=== PATIENT | female | born 1970 | race Two or more races ===

== ENCOUNTER 2021-11-16 01:13 | Emergency (ER) | payer BC, MEDICAID ==
[2021-11-16 02:20] LABS: ESTIMATED GFR 89 mL/min (>60)
== END 2021-11-16 02:30 | disposition home or self-care (01) ==
LOC: FB.ED 01:13
DX: F43.0 Acute stress reaction (principal); I10 Essential (primary) hypertension; I25.2 Old myocardial infarction; F17.210 Nicotine dependence, cigarettes, uncomplicated; Z79.899 Other long term (current) drug therapy
CPT/HCPCS: 36415; 80048; 85025; 93005; 99284

== ENCOUNTER 2021-11-17 03:28 | Emergency (ER) | payer MEDICAID ==
[2021-11-17] MEDS ORDERED: Sodium Chloride 0.9% 10 ML Syringe FLUSH PRN (03:38)
[2021-11-17] MEDS ORDERED: Thiamine 200 MG/2 ML MDV IVPUSH STA (03:39)
[2021-11-17] MEDS ORDERED: Sodium Chloride 0.9% 1,000 ML IV SCH (03:45)
[2021-11-17 04:15] LABS: ESTIMATED GFR 77 mL/min (>60)
== END 2021-11-17 05:31 | disposition home or self-care (01) ==
LOC: FB.ED 03:28
DX: F10.129 Alcohol abuse with intoxication, unspecified (principal); I10 Essential (primary) hypertension; I25.2 Old myocardial infarction; Z79.899 Other long term (current) drug therapy
CPT/HCPCS: 36415; 80053; 80307; 82150; 83690; 85025; 96361; 96374; 99284; J3411; J3490; J7030

== ENCOUNTER 2021-11-25 00:25 | Emergency (ER) | payer MEDICAID ==
[2021-11-25 00:54] LABS: ESTIMATED GFR 108 mL/min (>60)
[2021-11-25] MEDS ORDERED: amLODIPine 10 MG Tab PO STA (01:20)
[2021-11-25] MEDS ORDERED: Amoxicillin/Clavulanate K 875-125 MG Tab PO STA (01:54)
[2021-11-25] MEDS ORDERED: hydrALAZINE 20 MG/ML SDV IM ONE (01:59)
== END 2021-11-25 02:50 | disposition home or self-care (01) ==
LOC: FB.ED 00:25
DX: R10.32 Left lower quadrant pain (principal); F10.20 Alcohol dependence, uncomplicated; I10 Essential (primary) hypertension; I25.2 Old myocardial infarction; Z72.0 Tobacco use; Z79.899 Other long term (current) drug therapy
CPT/HCPCS: 36415; 74176; 80048; 85025; 96372; 99284; A9270; J0360

== ENCOUNTER 2021-12-29 19:07 | Emergency (ER) | payer MEDICAID ==
[2021-12-29] MEDS: Acetaminophen 500 MG Tab PO ONE ×2 (20:30→22:32)
[2021-12-29 22:33] LABS: ESTIMATED GFR 104 mL/min (>60)
[2021-12-29 22:34] LABS: ACETAMINOPHEN < 2 ug/mL (<2)
== END 2021-12-29 21:30 | disposition home or self-care (01) ==
LOC: FB.ED 19:07
DX: R51.9 Headache, unspecified (principal); M54.2 Cervicalgia; I10 Essential (primary) hypertension; I25.2 Old myocardial infarction; Z79.899 Other long term (current) drug therapy; W10.8XXA Fall (on) (from) other stairs and steps, initial encounter
CPT/HCPCS: 36415; 70450; 72125; 80053; 80143; 80179; 80307; 84484; 85025; 99285; A9270-GY

== ENCOUNTER 2022-02-21 01:09 | Emergency (ER) | payer MEDICAID ==
[2022-02-21] MEDS ORDERED: Ondansetron 4 MG Tab.DIS ONE (01:28)
[2022-02-21] MEDS ORDERED: Ondansetron 4 MG Tab.DIS PO ONE (01:30)
[2022-02-21] MEDS ORDERED: Acetaminophen 500 MG Tab PO ONE (01:40)
[2022-02-21] MEDS ORDERED: Benzonatate 100 MG Cap PO ONE (01:40)
[2022-02-21] MEDS ORDERED: Losartan 50 MG Tab PO ONE (01:41)
== END 2022-02-21 03:00 | disposition home or self-care (01) ==
LOC: FB.ED 01:09
DX: I10 Essential (primary) hypertension (principal); I25.2 Old myocardial infarction; Z79.899 Other long term (current) drug therapy
CPT/HCPCS: 99284; A9270; Q0162

== ENCOUNTER 2022-04-23 11:28 | Emergency (ER) | payer MEDICAID ==
[2022-04-23 11:42] LABS: ESTIMATED GFR 103 mL/min (>60)
[2022-04-23] MEDS ORDERED: hydrALAZINE 20 MG/ML SDV IVPUSH ONE (11:42)
[2022-04-23] MEDS ORDERED: Sodium Chloride 0.9% 1,000 ML IV SCH ×2 (11:45→14:45)
[2022-04-23] MEDS ORDERED: Ondansetron 4 MG/2 ML SDV IVPUSH ONE (12:12)
[2022-04-23] MEDS ORDERED: LORazepam 2 MG/ML SDV IVPUSH ONE (12:14)
[2022-04-23] MEDS ORDERED: Sodium Chloride 0.9% 1,000 ML IV ONE (12:47)
[2022-04-23 18:37] LABS: ESTIMATED GFR 103 mL/min (>60)
== END 2022-04-23 19:53 | disposition home or self-care (01) ==
LOC: FB.ED 11:28
DX: F10.129 Alcohol abuse with intoxication, unspecified (principal); Y90.0 Blood alcohol level of less than 20 mg/100 ml
CPT/HCPCS: 36415; 80053; 80307; 84484; 85025; 93005; 96361; 96374; 96375; 99284; J0360; J2060; J2405; J7030

== ENCOUNTER 2022-10-15 12:54 | Emergency (ER) | payer MEDICAID ==
[2022-10-15] MEDS ORDERED: Sodium Chloride 0.9% 10 ML Syringe FLUSH PRN (13:01)
[2022-10-15] MEDS ORDERED: Ondansetron 4 MG/2 ML SDV IVPUSH ONE (13:02)
[2022-10-15] MEDS ORDERED: LORazepam 2 MG/ML SDV IVPUSH STA (13:06)
[2022-10-15] MEDS ORDERED: Dextrose 5%-0.9% NaCl 1,000 ML IV SCH (13:15)
[2022-10-15] MEDS ORDERED: amLODIPine 10 MG Tab PO ONE (13:32)
[2022-10-15 13:43] LABS: BASOPHILS PERCENT AUTO 0.7 % (0.2-1.5); EOSINOPHILS PERCENT AUTO 0.6 % (0.6-8.1); HEMATOCRIT 40.5 % (34.2-48.2); HEMOGLOBIN 13.6 g/dL (11.4-15.5); LYMPHOCYTES ABSOLUTE AUTO 2.2 x10-3/uL (1.0-4.4); LYMPHOCYTES PERCENT AUTO 58.7 % (18.4-52.1); MEAN CORPUSCULAR HEMOGLOBIN 33.1 pg (23.9-33.9); MEAN CORPUSCULAR HGB CONC 33.7 g/dL (31.9-34.8); MEAN CORPUSCULAR VOLUME 98.3 fL (76.7-100.5); MEAN PLATELET VOLUME 7.2 fL (7.1-12.4); MONOCYTES ABSOLUTE AUTO 0.2 x10-3/uL (0.3-1.0); MONOCYTES PERCENT AUTO 4.9 % (4.4-15.7); NEUTROPHILS ABSOLUTE AUTO 1.3 x10-3/uL (1.5-6.3); NEUTROPHILS PERCENT AUTO 35.1 % (30.8-76.2); PLATELET COUNT,PLT 219 x10(3)uL (151-488); RED BLOOD CELL COUNT 4.12 x10(6)uL (3.60-5.20); WHITE BLOOD CELL COUNT,WBC 3.7 x10-3/uL (3.0-10.3)
[2022-10-15 13:50] LABS: BLOOD UREA NITROGEN,BUN 10 mg/dL (7-18); BUN/CREATININE RATIO 11.1 (9-20); CALCIUM 8.6 mg/dL (8.6-10.2); CARBON DIOXIDE,CO2 25 mmol/L (21-32); CHLORIDE,CL 104 mmol/L (100-110); CREATININE 0.9 mg/dL (0.55-1.02); ESTIMATED GFR 76 mL/min (>60); GLUCOSE RANDOM 138 mg/dL (80-116); POTASSIUM,K 3.3 mmol/L (3.5-5.3); SODIUM,NA 141 mmol/L (135-145)
[2022-10-15 13:56] LABS: A/G RATIO 0.9; ALANINE AMINOTRANSFERASE,ALT 24 U/L (12-36); ALBUMIN 3.7 g/dL (3.5-5.2); ALKALINE PHOSPHATASE 92 IU/L (56-112); AMYLASE 54 U/L (25-115); ASPARTATE AMNIOTRANSFERASE,AST 37 IU/L (5-25); BILIRUBIN TOTAL 0.4 mg/dL (0.1-1.3); PROTEIN TOTAL,TP 7.9 g/dL (6.0-8.0); SALICYLATE 3.6 mg/dL (<2.8)
[2022-10-15 13:58] LABS: ACETAMINOPHEN < 2 ug/mL (<2)
[2022-10-15 14:04] LABS: TSH ULTRASENSITIVE 0.58 IU/mL (0.36-3.74)
[2022-10-15 14:09] LABS: BILIRUBIN,URINE NEGATIVE (NEGATIVE); GLUCOSE,URINE NORMAL (NORMAL); KETONES,URINE NEGATIVE (NEGATIVE); LEUKOCYTE ESTERASE,URINE NEGATIVE (NEGATIVE); NITRITE,URINE NEGATIVE (NEGATIVE); OCCULT BLOOD,URINE NEGATIVE (NEGATIVE); PROTEIN,URINE NEGATIVE (NEGATIVE); UROBILINOGEN,URINE NORMAL (NEGATIVE)
[2022-10-15 14:10] LABS: APPEARANCE,URINE CLEAR (CLEAR); BACTERIA,URINE RARE (NS); COLOR,URINE YELLOW (YELLOW); RBC,URINE 0-5 (0-5); SQUAMOUS EPITHELIAL CELLS,UR FEW (NS,R,O); WBC,URINE 0-5 (0-5)
[2022-10-15 14:14] LABS: AMPHETAMINES SCREEN, URINE NEGATIVE (NEGATIVE); BARBITURATE SCREEN,URINE NEGATIVE (NEGATIVE); BENZODIAZEPINES SCREEN,URINE NEGATIVE (NEGATIVE); BUPRENORPHINE SCREEN,URINE NEGATIVE (NEGATIVE); METHADONE SCREEN, URINE NEGATIVE (NEGATIVE); METHAMPHETAMINE SCREEN, URINE NEGATIVE (NEGATIVE); OXYCODONE SCREEN,URINE NEGATIVE (NEGATIVE); PROPOXYPHENE SCREEN,URINE NEGATIVE (NEGATIVE); THC SCREEN,URINE NEGATIVE (NEGATIVE)
[2022-10-15] MEDS: Labetalol 20 MG/4 ML Syringe IVPUSH ONE ×2 (14:52→14:59)
[2022-10-15] MEDS ORDERED: Labetalol 20 MG/4 ML Syringe IVPUSH ONE (14:56)
[2022-10-15] MEDS ORDERED: Sodium Chloride 0.9% 1,000 ML IV SCH ×2 (15:00→17:45)
[2022-10-15] MEDS ORDERED: Potassium Chloride 20 MEQ Tab.ER PO ONE (15:09)
[2022-10-15] MEDS ORDERED: LORazepam 2 MG/ML SDV IVPUSH ONE (17:10)
[2022-10-15] MEDS ORDERED: hydrALAZINE 20 MG/ML SDV IVPUSH ONE (18:51)
[2022-10-15] MEDS ORDERED: Nicotine 21 MG/24 Hr Patch TRDERM ONE (19:30)
== END 2022-10-15 19:45 ==
LOC: FB.ED 12:54
DX: F32.A Depression, unspecified (principal); F41.9 Anxiety disorder, unspecified; I10 Essential (primary) hypertension; I25.2 Old myocardial infarction; J45.909 Unspecified asthma, uncomplicated; Z79.899 Other long term (current) drug therapy
CPT/HCPCS: 36415; 80053; 80143; 80179; 80307; 81001; 81025; 82150; 83690; 84439; 84443; 85025; 96361; 96374; 96375; 96376; 99285; A9270; J0360; J2060; J2405; J3490; J7030

== ENCOUNTER 2023-03-06 10:46 | Emergency (ER) | payer MEDICAID ==
[2023-03-06] MEDS ORDERED: Sodium Chloride 0.9% 10 ML Syringe FLUSH PRN (10:54)
[2023-03-06 11:07] LABS: BASOPHILS ABSOLUTE AUTO 0.1 x10-3/uL (0.0-0.1); BASOPHILS PERCENT AUTO 0.8 % (0.2-1.5); EOSINOPHILS PERCENT AUTO 0.4 % (0.6-8.1); LYMPHOCYTES ABSOLUTE AUTO 2.4 x10-3/uL (1.0-4.4); LYMPHOCYTES PERCENT AUTO 37.1 % (18.4-52.1); MEAN CORPUSCULAR HEMOGLOBIN 33.4 pg (23.9-33.9); MEAN CORPUSCULAR HGB CONC 33.4 g/dL (31.9-34.8); MEAN CORPUSCULAR VOLUME 99.8 fL (76.7-100.5); MEAN PLATELET VOLUME 7.7 fL (7.1-12.4); MONOCYTES ABSOLUTE AUTO 0.2 x10-3/uL (0.3-1.0); MONOCYTES PERCENT AUTO 2.5 % (4.4-15.7); NEUTROPHILS ABSOLUTE AUTO 3.8 x10-3/uL (1.5-6.3); NEUTROPHILS PERCENT AUTO 59.2 % (30.8-76.2); PLATELET COUNT,PLT 311 x10(3)uL (151-488); RED BLOOD CELL COUNT 4.21 x10(6)uL (3.60-5.20); RED CELL DISTRIBUTION WIDTH 13.9 % (12.3-16.5); WHITE BLOOD CELL COUNT,WBC 6.3 x10-3/uL (3.0-10.3)
[2023-03-06 11:22] LABS: BLOOD UREA NITROGEN,BUN 10 mg/dL (7-18); BUN/CREATININE RATIO 14.3 (9-20); CALCIUM 9.5 mg/dL (8.6-10.2); CARBON DIOXIDE,CO2 26 mmol/L (21-32); CHLORIDE,CL 106 mmol/L (100-110); CREATININE 0.7 mg/dL (0.55-1.02); EST CRCL DRUG DOSING (CG) 76.88 mL/min; ESTIMATED GFR 103 mL/min (>60); GLUCOSE RANDOM 89 mg/dL (80-116); POTASSIUM,K 3.3 mmol/L (3.5-5.3); SODIUM,NA 145 mmol/L (135-145)
[2023-03-06 11:27] LABS: A/G RATIO 0.8; ALANINE AMINOTRANSFERASE,ALT 20 U/L (12-36); ALBUMIN 4.1 g/dL (3.5-5.2); ALKALINE PHOSPHATASE 93 IU/L (56-112); ASPARTATE AMNIOTRANSFERASE,AST 15 IU/L (5-25); BILIRUBIN TOTAL 0.4 mg/dL (0.1-1.3); MAGNESIUM 2.2 mg/dL (1.8-2.5); PROTEIN TOTAL,TP 9.1 g/dL (6.0-8.0)
[2023-03-06 12:05] LABS: INFLUENZA A NAA NEGATIVE (NEGATIVE); INFLUENZA B NAA NEGATIVE (NEGATIVE)
[2023-03-06] MEDS ORDERED: LORazepam 2 MG/ML SDV IM STA (12:10)
[2023-03-06 12:12] LABS: CORONAVIRUS COVID-19 NAA NEGATIVE (NEGATIVE)
== END 2023-03-06 12:22 | disposition home or self-care (01) ==
LOC: FB.ED 10:46
DX: F10.20 Alcohol dependence, uncomplicated (principal); F43.9 Reaction to severe stress, unspecified; I25.2 Old myocardial infarction; J45.909 Unspecified asthma, uncomplicated; I10 Essential (primary) hypertension; Z88.0 Allergy status to penicillin; Z20.822 Contact with and (suspected) exposure to COVID-19; Y90.0 Blood alcohol level of less than 20 mg/100 ml
CPT/HCPCS: 0240U; 36415; 70450; 71045; 80053; 80307; 83735; 84100; 85025; 93005; 99285

== ENCOUNTER 2023-06-12 13:39 | Emergency (ER) | payer MEDICAID ==
[2023-06-12 14:21] LABS: BASOPHILS PERCENT AUTO 0.4 % (0.2-1.5); EOSINOPHILS ABSOLUTE AUTO 0.1 x10-3/uL (0.0-0.8); EOSINOPHILS PERCENT AUTO 1.3 % (0.6-8.1); HEMATOCRIT 36.9 % (34.2-48.2); HEMOGLOBIN 12.4 g/dL (11.4-15.5); LYMPHOCYTES ABSOLUTE AUTO 2.4 x10-3/uL (1.0-4.4); MEAN CORPUSCULAR HEMOGLOBIN 33.2 pg (23.9-33.9); MEAN CORPUSCULAR HGB CONC 33.7 g/dL (31.9-34.8); MEAN CORPUSCULAR VOLUME 98.5 fL (76.7-100.5); MEAN PLATELET VOLUME 7.9 fL (7.1-12.4); MONOCYTES ABSOLUTE AUTO 0.4 x10-3/uL (0.3-1.0); MONOCYTES PERCENT AUTO 9.4 % (4.4-15.7); NEUTROPHILS ABSOLUTE AUTO 1.5 x10-3/uL (1.5-6.3); NEUTROPHILS PERCENT AUTO 34.9 % (30.8-76.2); PLATELET COUNT,PLT 198 x10(3)uL (151-488); RED BLOOD CELL COUNT 3.74 x10(6)uL (3.60-5.20); RED CELL DISTRIBUTION WIDTH 14.9 % (12.3-16.5); WHITE BLOOD CELL COUNT,WBC 4.4 x10-3/uL (3.0-10.3)
[2023-06-12 14:32] LABS: BLOOD UREA NITROGEN,BUN 8 mg/dL (7-18); C-REACTIVE PROTEIN 0.8 mg/dL (<0.50); CALCIUM 8.8 mg/dL (8.6-10.2); CARBON DIOXIDE,CO2 31 mmol/L (21-32); CHLORIDE,CL 102 mmol/L (100-110); CREATININE 0.8 mg/dL (0.55-1.02); ESTIMATED GFR 88 mL/min (>60); GLUCOSE RANDOM 78 mg/dL (80-116); POTASSIUM,K 3.1 mmol/L (3.5-5.3); SODIUM,NA 140 mmol/L (135-145)
[2023-06-12 14:38] LABS: A/G RATIO 0.8; ALANINE AMINOTRANSFERASE,ALT 24 U/L (12-36); ALBUMIN 3.6 g/dL (3.5-5.2); ALKALINE PHOSPHATASE 86 IU/L (56-112); ASPARTATE AMNIOTRANSFERASE,AST 19 IU/L (5-25); BILIRUBIN TOTAL 0.3 mg/dL (0.1-1.3); MAGNESIUM 2.1 mg/dL (1.8-2.5); PROTEIN TOTAL,TP 7.9 g/dL (6.0-8.0)
[2023-06-12] MEDS ORDERED: Potassium Chloride 20 MEQ Tab.ER PO ONE (15:03)
[2023-06-12] MEDS ORDERED: Ketorolac 30 MG/ML SDV IVPUSH ONE (15:09)
[2023-06-12] MEDS ORDERED: Labetalol 20 MG/4 ML Syringe IVPUSH ONE (15:10)
[2023-06-12 16:44] LABS: INFLUENZA A NAA NEGATIVE (NEGATIVE); INFLUENZA B NAA NEGATIVE (NEGATIVE); RESPIRATORY SYNCYTIAL VIR NAA NEGATIVE (NEGATIVE)
[2023-06-12 16:56] LABS: CORONAVIRUS COVID-19 NAA NEGATIVE (NEGATIVE)
[2023-06-12] MEDS ORDERED: Iopamidol 755 Mg/ML 100 ML Bottle IV SCH (17:00)
[2023-06-12] MEDS ORDERED: amLODIPine 5 MG Tab PO ONE (18:51)
[2023-06-12] MEDS ORDERED: Azithromycin 500 MG Tab PO ONE (18:51)
== END 2023-06-12 19:25 | disposition home or self-care (01) ==
LOC: FB.ED 13:39
DX: J18.9 Pneumonia, unspecified organism (principal); R03.0 Elevated blood-pressure reading, without diagnosis of hypertension; E87.6 Hypokalemia; I10 Essential (primary) hypertension; I25.2 Old myocardial infarction; J45.909 Unspecified asthma, uncomplicated; Z88.0 Allergy status to penicillin; Z79.899 Other long term (current) drug therapy
CPT/HCPCS: 0241U; 36415; 71275; 80053; 83690; 83735; 84484; 85025; 85379; 86140; 93005; 93010; 96374; 96375; 99284; 99285-25; A9270-GY; J1885; J1920; Q9967

== ENCOUNTER 2023-07-02 06:42 | Emergency (ER) | payer MEDICAID ==
[2023-07-02] MEDS ORDERED: Sodium Chloride 0.9% 10 ML Syringe FLUSH PRN (07:04)
[2023-07-02 07:32] LABS: BASOPHILS ABSOLUTE AUTO 0.1 x10-3/uL (0.0-0.1); BASOPHILS PERCENT AUTO 1.3 % (0.2-1.5); EOSINOPHILS PERCENT AUTO 0.5 % (0.6-8.1); HEMATOCRIT 40.8 % (34.2-48.2); HEMOGLOBIN 13.8 g/dL (11.4-15.5); LYMPHOCYTES ABSOLUTE AUTO 1.9 x10-3/uL (1.0-4.4); LYMPHOCYTES PERCENT AUTO 36.1 % (18.4-52.1); MEAN CORPUSCULAR HEMOGLOBIN 33.2 pg (23.9-33.9); MEAN CORPUSCULAR VOLUME 97.7 fL (76.7-100.5); MEAN PLATELET VOLUME 7.2 fL (7.1-12.4); MONOCYTES ABSOLUTE AUTO 0.2 x10-3/uL (0.3-1.0); MONOCYTES PERCENT AUTO 4.4 % (4.4-15.7); NEUTROPHILS ABSOLUTE AUTO 3.1 x10-3/uL (1.5-6.3); NEUTROPHILS PERCENT AUTO 57.7 % (30.8-76.2); PLATELET COUNT,PLT 286 x10(3)uL (151-488); RED BLOOD CELL COUNT 4.17 x10(6)uL (3.60-5.20); RED CELL DISTRIBUTION WIDTH 15.5 % (12.3-16.5); WHITE BLOOD CELL COUNT,WBC 5.3 x10-3/uL (3.0-10.3)
[2023-07-02] MEDS: Sodium Chloride 0.9% 1,000 ML IV SCH (07:41)
[2023-07-02 07:42] LABS: BLOOD UREA NITROGEN,BUN 15 mg/dL (7-18); BUN/CREATININE RATIO 16.7 (9-20); CALCIUM 9.3 mg/dL (8.6-10.2); CARBON DIOXIDE,CO2 25 mmol/L (21-32); CHLORIDE,CL 100 mmol/L (100-110); CREATININE 0.9 mg/dL (0.55-1.02); ESTIMATED GFR 76 mL/min (>60); GLUCOSE RANDOM 78 mg/dL (80-116); POTASSIUM,K 4.4 mmol/L (3.5-5.3); SODIUM,NA 140 mmol/L (135-145)
[2023-07-02] MEDS: Thiamine 100 MG in Sodium Chloride 0.9% 50 ML IV ONE (07:43)
[2023-07-02 07:48] LABS: A/G RATIO 0.9; ALANINE AMINOTRANSFERASE,ALT 32 U/L (12-36); ALBUMIN 4.3 g/dL (3.5-5.2); ALKALINE PHOSPHATASE 91 IU/L (56-112); AMYLASE 50 U/L (25-115); ASPARTATE AMNIOTRANSFERASE,AST 36 IU/L (5-25); BILIRUBIN TOTAL 0.4 mg/dL (0.1-1.3)
[2023-07-02] MEDS: Ondansetron 4 MG/2 ML SDV IVPUSH ONE (07:53)
[2023-07-02] MEDS: Ketorolac 30 MG/ML SDV IVPUSH ONE (07:53)
[2023-07-02] MEDS: Morphine 4 MG/ML VIAL IVPUSH ONE (08:26)
== END 2023-07-02 10:30 | disposition home or self-care (01) ==
LOC: FB.ED 06:42
DX: M79.605 Pain in left leg (principal); F10.920 Alcohol use, unspecified with intoxication, uncomplicated; I10 Essential (primary) hypertension; I25.2 Old myocardial infarction; F17.210 Nicotine dependence, cigarettes, uncomplicated; Z88.0 Allergy status to penicillin; Z79.899 Other long term (current) drug therapy
CPT/HCPCS: 73502; 80053; 80307; 82150; 83690; 85025; 96365; 96366; 96375; 99284; J1885; J2270; J2405; J3411; J3490; J7030

== ENCOUNTER 2024-10-31 16:14 | Emergency (ER) | payer BC, MEDICAID | END 2024-10-31 17:20 | disposition home or self-care (01) | LOC: FB.ED 16:14 | DX: T65.893A Toxic effect of other specified substances, assault, initial encounter (principal); I10 Essential (primary) hypertension; I25.2 Old myocardial infarction; Z88.0 Allergy status to penicillin; Z79.899 Other long term (current) drug therapy | CPT/HCPCS: 99283 ==